=== PATIENT | male | born 1995 | race Caucasian/White ===

== ENCOUNTER 2018-09-17 16:58 | Emergency (ER) | payer SELFPAY ==
[~2018-09-17] VITALS: Ht 172.7 cm; Wt 88.9 kg
[2018-09-17] MEDS ORDERED: LIDOCAINE 1% INJ 20 ML 20 ML VIAL INJ ONE (18:00)
[2018-09-17 18:02] LABS: BASOPHILS % (AUTO) 0 % (0-10); EOSINOPHILS # (AUTO) 0.1 10^3/uL (0.0-0.3); EOSINOPHILS % (AUTO) 1 % (0-10); HEMATOCRIT 45 % (40-54); HEMOGLOBIN 15.2 G/DL (13.3-17.7); LYMPHOCYTES # (AUTO) 2.7 X 10^3 (1.0-4.0); LYMPHOCYTES % (AUTO) 28 % (12-44); MEAN CORPUSCULAR HEMOGLOBIN 28 PG (25-34); MEAN CORPUSCULAR HGB CONC 34 G/DL (32-36); MEAN CORPUSCULAR VOLUME 83 FL (80-99); MEAN PLATELET VOLUME 9.5 FL (7.4-10.4); MONOCYTES # (AUTO) 1.1 X 10^3 (0.0-1.0); MONOCYTES % (AUTO) 11 % (0-12); NEUTROPHILS % (AUTO) 61 % (42-75); PLATELET COUNT 238 10^3/uL (130-400); RED CELL DISTRIBUTION WIDTH 13.1 % (10.0-14.5); WHITE BLOOD COUNT 9.9 10^3/uL (4.3-11.0)
[2018-09-17 18:10] LABS: INR 1.1 (0.8-1.4)
[2018-09-17 18:16] LABS: ALANINE AMINOTRANSFERASE 32 U/L (0-55); ALBUMIN 4.7 GM/DL (3.2-4.5); ALKALINE PHOSPHATASE 83 U/L (40-136); BILIRUBIN,TOTAL 0.8 MG/DL (0.1-1.0); BUN/CREATININE RATIO 12; CALCIUM 9.5 MG/DL (8.5-10.1); CARBON DIOXIDE 23 MMOL/L (21-32); CHLORIDE 104 MMOL/L (98-107); CREATININE SERUM 1.11 MG/DL (0.60-1.30); GFR ESTIMATED > 60; GLUCOSE 106 MG/DL (70-105); POTASSIUM 3.4 MMOL/L (3.6-5.0); SODIUM 138 MMOL/L (135-145)
--- NOTE | 2018-09-17 18:18 | Diagnostic Imaging Report ---
INDICATION: Right knee pain, swelling. COMPARISON: None. EXAMINATION: Three views of the right knee were obtained. FINDINGS: Soft tissue swelling overlying the patella. There is no joint effusion. There is no osseous abnormality. No osteomyelitis, fracture or dislocation is seen. IMPRESSION: Soft tissue swelling without underlying fracture or joint effusion. Dictated by: Dictated on workstation # [id number]
[2018-09-17] MEDS ORDERED: cefTRIAXone 1,000 MG IV (ROCEPHIN) VIAL ONE (18:28)
[2018-09-17] MEDS ORDERED: ONDANSETRON 4 MG/2 ML (SDV) Z0FRAN ONE (18:33)
--- NOTE | 2018-09-17 18:37 | ED Lower Extremity ---
General Chief Complaint: Lower Extremity Stated Complaint: PAIN IN BOTH KNEES Nursing Triage Note: Right knee pain that started last night. Knee is red and warm to the touch Nursing Sepsis Screen: Possible Sepsis Risk Source: patient Exam Limitations: no limitations History of Present Illness Date Seen by Provider: September 17, 2018 Time Seen by Provider: 18:32 Initial Comments To ER per private vehicle with reports of right knee pain that started last night. He also had chills last night but did not measure his temperature. 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 He is otherwise healthy. He denies pain with range of motion to the knee except at full flexion the anterior knee feels painful. Anterior knee only is red. He is able to bear weight without pain. Onset: just prior to arrival Severity: moderate Pain/Injury Location: right knee Method of Injury: unknown Allergies and Home Medications Allergies Coded Allergies: No Known Drug Allergies (Unverified , 09/17/18) Home Medications Cephalexin 500 Mg Capsule, 500 MG PO Q6H . Prescribed by: DARRYL CHEN on 09/17/181934 Sulfamethoxazole/Trimethoprim 1 Each Tablet, 1 EACH PO BID . Prescribed by: DARRYL CHEN on 09/17/181934 Patient Home Medication List Home Medication List Reviewed: Yes Review of Systems Constitutional: see HPI, chills; No fever EENTM: see HPI Respiratory: no symptoms reported Cardiovascular: no symptoms reported Genitourinary: no symptoms reported Musculoskeletal: no symptoms reported Skin: see HPI Past Rhfnqsb-Psczbg-Zfmhll Hx Patient Social History Alcohol Use: Denies Use Recreational Drug Use: No Smoking Status: Never a Smoker 2nd Hand Smoke Exposure: No Recent Foreign Travel: No Contact w/Someone Who Travel: No Recent Infectious Disease Expo: No Recent Hopitalizations: No Past Medical History Surgeries: No Respiratory: No Cardiac: No Neurological: No Genitourinary: No Gastrointestinal: No Musculoskeletal: No Endocrine: No HEENT: No Cancer: No Psychosocial: No Integumentary: No Blood Disorders: No Physical Exam Vital Signs Vital Signs - First Documented 09/17/18 17:23 Temp 99.9 Pulse 98 Resp 18 B/P (MAP) 115/70 (85) Pulse Ox 97 O2 Delivery Room Air Capillary Refill : Less Than 3 Seconds Height, Weight, BMI Height: 5'8.00" Weight: 196lbs. oz. 88.959420yn; BMI Method:Stated General Appearance: WD/WN, no apparent distress HEENT: PERRL/EOMI, normal ENT inspection Respiratory: no respiratory distress, no accessory muscle use Hips: bilateral hip non-tender, bilateral hip normal inspection, bilateral hip normal range of motion Legs: bilateral leg non-tender, bilateral leg normal inspection, bilateral leg normal range of motion Knees: right knee other (the right knee anteriorly only has swelling fairly well demarcated erythema, pain. He is able to flex the knee to 90 without any discomfort at all, able to fully extend the knee. Beyond flexion of 90 he describes a tight sensation of the skin overlying the anterior knee. There is fluctuance in the region of the prepatellar bursa which is where the most pain and erythema is also out of.) Feet: bilateral foot non-tender, bilateral foot normal inspection Neurologic/Psychiatric: alert, normal mood/affect, oriented x 3 Skin: normal color, warm/dry Progress/Results/Core Measures Results/Orders Lab Results Laboratory Tests Test 09/17/18 17:40 09/17/18 18:26 Range/Units White Blood Count 9.9 4.3-11.0 10^3/uL Red Blood Count 5.38 4.35-5.85 10^6/uL Hemoglobin 15.2 13.3-17.7 G/DL Hematocrit 45 40-54 % Mean Corpuscular Volume 83 80-99 FL Mean Corpuscular Hemoglobin 28 25-34 PG Mean Corpuscular Hemoglobin Concent 34 32-36 G/DL Red Cell Distribution Width 13.1 10.0-14.5 % Platelet Count 238 130-400 10^3/uL Mean Platelet Volume 9.5 7.4-10.4 FL Neutrophils (%) (Auto) 61 42-75 % Lymphocytes (%) (Auto) 28 12-44 % Monocytes (%) (Auto) 11 0-12 % Eosinophils (%) (Auto) 1 0-10 % Basophils (%) (Auto) 0 0-10 % Neutrophils # (Auto) 6.0 1.8-7.8 X 10^3 Lymphocytes # (Auto) 2.7 1.0-4.0 X 10^3 Monocytes # (Auto) 1.1 H 0.0-1.0 X 10^3 Eosinophils # (Auto) 0.1 0.0-0.3 10^3/uL Basophils # (Auto) 0.0 0.0-0.1 10^3/uL Prothrombin Time 15.0 H 12.2-14.7 SEC INR Comment 1.1 0.8-1.4 Activated Partial Thromboplast Time 44 H 24-35 SEC Sodium Level 138 135-145 MMOL/L Potassium Level 3.4 L 3.6-5.0 MMOL/L Chloride Level 104 98-107 MMOL/L Carbon Dioxide Level 23 21-32 MMOL/L Anion Gap 11 5-14 MMOL/L Blood Urea Nitrogen 13 7-18 MG/DL Creatinine 1.11 0.60-1.30 MG/DL Estimat Glomerular Filtration Rate > 60 BUN/Creatinine Ratio 12 Glucose Level 106 H 70-105 MG/DL Lactic Acid Level 0.94 0.50-2.00 MMOL/L Calcium Level 9.5 8.5-10.1 MG/DL Corrected Calcium 8.5-10.1 MG/DL Total Bilirubin 0.8 0.1-1.0 MG/DL Aspartate Amino Transf (AST/SGOT) 25 5-34 U/L Alanine Aminotransferase (ALT/SGPT) 32 0-55 U/L Alkaline Phosphatase 83 40-136 U/L Total Protein 8.0 6.4-8.2 GM/DL Albumin 4.7 H 3.2-4.5 GM/DL Body Fluid Source SYNOVIAL Body Fluid Color YELLOW Body Fluid Appearance MOD BLDY Body Fluid WBC 5350 /uL Body Fluid RBC 25077 /uL Body Fluid Polynuclear WBCs 16 % Body Fluid Mononuclear WBCs 1 % Body Fluid Lymphocytes 83 % Body Fluid Other Cells 0 % Micro Results Microbiology 09/17/18 Blood Culture - Preliminary, Resulted No growth 09/17/18 Blood Culture - Preliminary, Resulted No growth My Orders Orders - DARRYL CHEN APRN Lidocaine 1% Inj 20 Ml (Xylocaine 1% Inj (09/17/18 18:00) Knee, Right, 3 Views (09/17/18 17:57) Body Fluid Cell Count (09/17/18 18:30) Body Fluid Culture (09/17/18 18:30) Ceftriaxone For Iv Use (Rocephin For I (09/17/18 18:28) Ondansetron Injection (Zofran Injectio (09/17/18 18:33) Medications Given in ED Vital Signs/I&O 09/17/18 09/17/18 17:23 19:35 Temp 99.9 98.0 Pulse 98 88 Resp 18 17 B/P (MAP) 115/70 (85) 117/76 (90) Pulse Ox 97 99 O2 Delivery Room Air Room Air Blood Pressure Mean: 85 Diagnostic Imaging Diagonstic Imaging: Xray Comments NAME: MARINO BARROW [facility] REC#: [id number] PT STATUS: REG ER : 02/21/1997 PHYSICIAN: DARRYL CHEN [employer]UEL[employer] ENGINEER ADMIT DATE: 09/17/18/ER Signed Date of Exam:09/17/18 KNEE, RIGHT, 3 VIEWS INDICATION: Right knee pain, swelling. COMPARISON: None. EXAMINATION: Three views of the right knee were obtained. FINDINGS: Soft tissue swelling overlying the patella. There is no joint effusion. There is no osseous abnormality. No osteomyelitis, fracture or dislocation is seen. IMPRESSION: Soft tissue swelling without underlying fracture or joint effusion. Dictated by: Dictated on workstation # [id number] Dict: 09/17/181813 Trans: 09/17/181819 [facility] [id number] Interpreted by: TAPAN ORTIZ Electronically signed by: TAPAN ORTIZ 09/17/181819 Departure Communication (Admissions) Given the history of illness and clinical exam this appears to be prepatellar septic bursitis and not septic arthritis. Given the knee erythema swelling and fluctuance overlying the patellar bursa I did anesthetize this area with 1 mL of lidocaine without epinephrine, then inserted an 18-gauge 1-1/2 inch needle into the midline anterior knee with his leg in full extension parallel to the patella and superficial to the patella where I was able to aspirate 2 mL of serosanguineous material. He did report improvement in his pain after this aspiration. I opted not to proceed with aspiration of the knee joint itself given the overlying infection in the absence of signs of septic arthritis as I do not want to introduce bacteria from the infected overlying tissues into this sterile environment. Impression Primary Impression: Septic prepatellar bursitis of right knee Disposition: HOME, SELF-CARE Condition: Stable Departure-Patient Inst. Decision time for Depature: 18:44 Referrals: [facility] (PCP/Family) Primary Care Physician Patient Instructions: Prepatellar Bursitis Add. Discharge Instructions: 1. Unfortunately this may need to be drained again if it becomes more swollen. Return to ER for any fevers, increasing redness or other concerns. In the meantime take antibiotics as directed starting tomorrow morning. It is important to take the entire 10 day course of antibiotics even if your symptoms improve before the antibiotics are complete. All discharge instructions reviewed with patient and/or family. Voiced understanding. Scripts Cephalexin (Keflex) 500 Mg Capsule 500 MG PO Q6H, #40 CAP . Prov: DARRYL CHEN APRN 09/17/18 Sulfamethoxazole/Trimethoprim (Bactrim Ds Tablet) 1 Each Tablet 1 EACH PO BID, #20 TAB . Prov: DARRYL CHEN APRN 09/17/18 DARRYL CHEN APRN September 17, 2018 18:37
[2018-09-17] MEDS ORDERED: SULF1TAB35 PO ×2 (18:46→19:35)
[2018-09-17] MEDS ORDERED: CEPH-507 PO ×2 (18:46→19:35)
[2018-09-17 19:24] LABS: BODY FLUID APPEARENCE MOD BLDY; BODY FLUID COLOR YELLOW; BODY FLUID RBC COUNT 19700 /uL; BODY FLUID SOURCE SYNOVIAL; BODY FLUID WBC TOTAL COUNT 5350 /uL
[2018-09-17 19:35] VITALS: BP 117/76
[2018-09-17 19:37] LABS: BF OTHER CELLS 0 %; LYMPHOCYTES,BODY FLUID 83 %
== END 2018-09-17 19:34 | disposition home or self-care (01) ==
LOC: ER 17:01 → EDBD 17:01 → ER 19:34
DX: M70.41 Prepatellar bursitis, right knee (principal)
CPT/HCPCS: 36415; 73562; 80053; 83605; 85025; 85610; 85730; 87040; 87070; 87077; 87186; 87205; 89051